=== PATIENT | female | born 1970 ===

== ENCOUNTER 2018-07-26 09:57 | Observation (INO) | payer OTHER ==
[2018-07-26] MEDS ORDERED: Sodium Chloride 0.9% 1,000 ML IV STA (10:31)
--- NOTE | 2018-07-26 10:45 | ED PDOC ---
Syncope/Near Syncope/Dizziness Time Seen by Provider: 07/26/18 10:08 Chief Complaint (Nursing): Abdominal Pain Chief Complaint (Provider): Abdominal Pain History Per: Patient History/Exam Limitations: no limitations Current Symptoms Are (Timing): Still Present Number Of Syncopal Episodes: 2 Activity At Onset Of Symptoms: Sitting Additional Complaint(s): 47 year old female presents to the ED via EMS after 2 syncopal episodes that occurred today while she was going to the bathroom. Patient reports upper abdominal discomfort associated with diarrhea and nausea prior to the incident. She still complains of nausea. Patient mildly improved after EMS placed an IV. Denies vomiting, hematochezia, chest pain, palpitations and focal weakness. PMD: none provided Past Medical History Reviewed: Historical Data, Nursing Documentation, Vital Signs Vital Signs: Last Vital Signs Temp 98.8 F 07/26/18 10:04 Pulse 56 L 07/26/18 10:04 Resp 17 07/26/18 10:04 BP 119/74 07/26/18 10:04 Pulse Ox 100 07/26/18 10:04 - Medical History PMH: Depression - Surgical History Surgical History: No Surg Hx - Family History Family History: States: Unknown Family Hx - Allergies Allergies/Adverse Reactions: Allergies Allergy/AdvReac Type Severity Reaction Status Date / Time No Known Allergies Allergy Unverified 07/26/18 10:08 Review of Systems ROS Statement: Except As Marked, All Systems Reviewed And Found Negative Cardiovascular: Negative for: Chest Pain, Palpitations Gastrointestinal: Positive for: Nausea, Vomiting (x 3; not actively), Abdominal Pain (upper abdominal discomfort ), Diarrhea. Negative for: Hematochezia Physical Exam - Reviewed Nursing Documentation Reviewed: Yes Vital Signs Reviewed: Yes - Physical Exam Appears: Positive for: Non-toxic, No Acute Distress Head Exam: Positive for: ATRAUMATIC, NORMAL INSPECTION, NORMOCEPHALIC Skin: Positive for: Normal Color, Warm, Dry Eye Exam: Positive for: EOMI, Normal appearance, PERRL Neck: Positive for: Normal, Painless ROM, Supple Cardiovascular/Chest: Positive for: Regular Rate, Rhythm. Negative for: Murmur Respiratory: Positive for: Normal Breath Sounds. Negative for: Wheezing, Respiratory Distress Gastrointestinal/Abdominal: Positive for: Normal Exam, Soft. Negative for: Tend erness Back: Positive for: Normal Inspection. Negative for: L CVA Tenderness, R CVA Tenderness Extremity: Positive for: Normal ROM (upper and lower extremities). Negative for: Deformity Neurologic/Psych: Positive for: Alert, twister doffer II-XII (intact), Oriented (x 3), Cerebellar Tests (negative). Negative for: Motor/Sensory Deficits, Facial Droop - ECG O2 Sat by Pulse Oximetry: 100 (RA) Pulse Ox Interpretation: Normal Medical Decision Making Medical Decision Makin:31 Impression: syncopal episode Initial Plan: --Abd & Pelvis CT --Head CT --EKG --CMP --CBC --Troponin I --Urine dip --Urine preg --NS IV 11:[address] FINDINGS: HEMORRHAGE: No intracranial hemorrhage. BRAIN: No mass effect or edema. No atrophy or chronic microvascular ischemic changes. VENTRICLES: Unremarkable. No hydrocephalus. CALVARIUM: Unremarkable. PARANASAL SINUSES: Unremarkable as visualized. No significant inflammatory changes. MASTOID AIR CELLS: Unremarkable as visualized. No inflammatory changes. OTHER FINDINGS: None. IMPRESSION: Normal CT of the Head. No intracranial mass, hemorrhage or evidence of acute infarct. ------ Scribe Attestation: Documented by Alida Masters acting as a scribe for Paolo Arnold MD Provider Scribe Attestation: All medical record entries made by the Scribe were at my direction and personally dictated by me. I have reviewed the chart and agree that the record accurately reflects my personal performance of the history, physical exam, medical decision making, and the department course for this patient. I have also personally directed, reviewed, and agree with the discharge instructions and disposition. Disposition - Clinical Impression Clinical Impression: Syncope - Patient ED Disposition Is Patient to be Admitted: Yes - Disposition Disposition Time: 12:00 Condition: FAIR Forms: Dipl[place] (Citizen Of [place]) - Pt Status Changed To: Hospital Disposition Of: Observation - POA Present On Arrival: None
--- NOTE | 2018-07-26 11:08 | CT ---
Date of service: 07/26/2018 PROCEDURE: CT HEAD WITHOUT CONTRAST. HISTORY: syncope COMPARISON: None available. TECHNIQUE: Axial computed tomography images were obtained through the head/brain without intravenous contrast. Radiation dose: Total exam DLP = 925.99 mGy-cm. This CT exam was performed using one or more of the following dose reduction techniques: Automated exposure control, adjustment of the mA and/or kV according to patient size, and/or use of iterative reconstruction technique. FINDINGS: HEMORRHAGE: No intracranial hemorrhage. BRAIN: No mass effect or edema. No atrophy or chronic microvascular ischemic changes. VENTRICLES: Unremarkable. No hydrocephalus. CALVARIUM: Unremarkable. PARANASAL SINUSES: Unremarkable as visualized. No significant inflammatory changes. MASTOID AIR CELLS: Unremarkable as visualized. No inflammatory changes. OTHER FINDINGS: None. IMPRESSION: Normal CT of the Head. No intracranial mass, hemorrhage or evidence of acute infarct.
--- NOTE | 2018-07-26 11:35 | CARD ---
APPROVED REPORT Date of service: 07/26/2018 EKG Measurement Heart [id number] <Conclusion> Normal sinus rhythm Normal ECG
[2018-07-26 12:44] LABS: BASO % 0.3 % (0.0-2.0); HEMOGLOBIN 15.7 g/dL (12.0-16.0); LYMPH # 1.3 K/uL (1.0-4.3); LYMPH % 8.6 % (20.0-40.0); MEAN CELL VOLUME 86.4 fl (81.0-99.0); MEAN CORPUSCULAR HEMOGLOBIN 27.9 pg (27.0-31.0); MEAN CORPUSCULAR HGB CONC 32.3 g/dL (33.0-37.0); MEAN PLATELET VOLUME 7.5 fl (7.2-11.7); MONO # 0.6 K/uL (0.0-0.8); MONO % 3.8 % (0.0-10.0); NEUT # 13.5 K/uL (1.8-7.0); NEUT % 87.3 % (50.0-75.0); PLATELET COUNT 318 K/uL (130-400); RBC 5.65 Mil/uL (3.80-5.20); RED CELL DISTRIBUTION WIDTH 14.8 % (11.5-14.5); WHITE BLOOD COUNT 15.4 K/uL (4.8-10.8)
[2018-07-26 12:47] LABS: ALB/GLOB RATIO 1.1 (1.0-2.1); ALBUMIN 4.6 g/dL (3.5-5.0); ALT/SGPT 26 U/L (9-52); AST/SGOT 22 U/L (14-36); BLOOD UREA NITROGEN 14 mg/dl (7-17); CALCIUM 8.9 mg/dL (8.4-10.2); GFR NON-AFRICAN AMERICAN > 60
[2018-07-26] MEDS ORDERED: Sodium Chloride 0.9% 50 ML IV ONE (12:54)
[2018-07-26] MEDS ORDERED: Iohexol 300 100 ML IJ ONE (12:54)
--- NOTE | 2018-07-26 13:18 | CP.PCM.HP ---
<Lisa Last - Last Filed: 07/26/18 14:58> History of Present Illness - History of Present Illness History of Present Illness: CC: Syncope, abdominal pain 47 yo female patient, with PMHx of psoriatic arthritis, herniated disks, and depression, seen and examined at bedside for two episodes of syncope while going to the bathroom this morning. She states that she woke up this morning with abdominal discomfort, prompting her to use the restroom. During both episodes she sat down on the toilet she woke up on the bathroom floor. She admits to hitting her head on the bathroom pipes during episode. Denies V/F/SOB/CP/chills, denies dizziness, denies headache, reports abdominal discomfort and nausea. PMHx: Psoriatic arthritis, herniated disks, and depression PSHx: Appendectomy (1977), Tonsilectomy (1979), (1998), Cholecystectomy (2012) SHx: Denies tobacco use, denies illicit drug use, social alcohol use ALL: NKDA Present on Admission - Present on Admission Any Indicators Present on Admission: No History of DVT/PE: No History of Uncontrolled Diabetes: No Urinary Catheter: No Decubitus Ulcer Present: No Review of Systems - Constitutional Constitutional: As Per HPI. absent: Chills, Fever, Headache - EENT Eyes: absent: Blurred Vision, Change in Vision, Loss of Vision Ears: absent: Decreased Hearing Nose/Mouth/Throat: absent: Sinus Pressure, Throat Swelling, Neck Pain - Cardiovascular Cardiovascular: Syncope. absent: Chest Pain, Dyspnea, Palpitations - Respiratory Respiratory: absent: Cough, Dyspnea, Wheezing - Gastrointestinal Gastrointestinal: Nausea. absent: Bloating, Vomiting - Genitourinary Genitourinary: absent: Change in Urinary Stream, Urinary Urgency - Musculoskeletal Musculoskeletal: Arthralgias - Integumentary Integumentary: Rash Additional comments: Psoriatic lesions located on b/l arms and lower extremities - Neurological Neurological: Syncope. absent: Dizziness, Headaches, Loss of Vision - Hematologic/Lymphatic Hematologic: absent: Easy Bleeding, Easy Bruising Past Patient History - Past Medical History & Family History Past Medical History?: Yes - Past Social History Smoking Status: Never Smoked Drugs: Denies Home Situation {Lives}: With Family - MUSCULOSKELETAL/RHEUMATOLOGICAL Hx Musculoskeletal Disorders: Yes Hx Herniated Disk: Yes - PSYCHIATRIC Hx Depression: Yes - SURGICAL HISTORY Hx Surgeries: No - ANESTHESIA Hx Anesthesia: No Meds Allergies/Adverse Reactions: Allergies Allergy/AdvReac Type Severity Reaction Status Date / Time No Known Allergies Allergy Unverified 07/26/18 10:08 Physical Exam - Constitutional Appears: Non-toxic, No Acute Distress - Head Exam Additional comments: Contusion noted to L forehead above eyebrow with ecchymosis - Eye Exam Eye Exam: EOMI, PERRL Pupil Exam: NORMAL ACCOMODATION - ENT Exam ENT Exam: Mucous Membranes Moist - Neck Exam Neck exam: Positive for: Normal Inspection - Respiratory Exam Respiratory Exam: Clear to Auscultation Bilateral - Cardiovascular Exam Cardiovascular Exam: REGULAR RHYTHM - GI/Abdominal Exam GI & Abdominal Exam: Normal Bowel Sounds, Soft - Extremities Exam Extremities exam: Positive for: normal inspection. Negative for: pedal edema - Neurological Exam Neurological exam: Alert, Oriented x3 - Psychiatric Exam Psychiatric exam: Normal Affect, Normal Mood - Skin Skin Exam: Warm Results - Vital Signs Recent Vital Signs: Last Vital Signs Temp 98.8 F 07/26/18 10:04 Pulse 56 L 07/26/18 10:04 Resp 17 07/26/18 10:04 BP 119/74 07/26/18 10:04 Pulse Ox 100 07/26/18 12:00 - Labs Result Diagrams: 07/26/18 11:32 07/26/18 10:34 Labs: Laboratory Results - last 24 hr 07/26/18 07/26/18 07/26/18 10:32 10:34 11:32 WBC 15.4 H RBC 5.65 H Hgb 15.7 Hct 48.8 H MCV 86.4 MCH 27.9 MCHC 32.3 L RDW 14.8 H Plt Count 318 MPV 7.5 Neut % (Auto) 87.3 H Lymph % (Auto) 8.6 L [place] % (Auto) 3.8 Eos % (Auto) 0.0 Baso % (Auto) 0.3 Neut # (Auto) 13.5 H Lymph # (Auto) 1.3 [place] # (Auto) 0.6 Eos # (Auto) 0.0 Baso # (Auto) 0.0 Sodium 141 Potassium 4.0 Chloride 108 H Carbon Dioxide 22 Anion Gap 15 BUN 14 Creatinine 0.5 L Est GFR ( Amer) > 60 Est GFR (Non-Af Amer) > 60 POC Glucose (mg/dL) 93 Random Glucose 97 Calcium 8.9 Total Bilirubin 0.6 AST 22 ALT 26 Alkaline Phosphatase 76 Troponin I < 0.0120 Total Protein 8.6 H Albumin 4.6 Globulin 4.0 H Albumin/Globulin Ratio 1.1 Assessment & Plan - Assessment and Plan (Free Text) Assessment: 47 yo female patient, with PMHx of psoriatic arthritis, herniated disks, and depression, admitted for multiple episodes of syncope of unknown etiology Plan: 1) Syncopal episode - Ekg: Normal sinus rhythm - Head CT w/o contrast: Normal CT of the head. No intracranial mass, hemorrhage, or evidence of acute infarct. - CMP WNL, first troponin neg, trend Q 6hrs\ - orthostatic blood pressure - Urine drug screen pending - Continous tele monitoring - Ambulation with full precautions - Regular diet - IV fluid maintenance hydration 2) Abdominal discomfort - Leukocytosis 15.4 on presentation, afebrile, no signs or symptoms of infection - F/U next day CBC - Zofran PRN - Abdomen/Pelvis CT: No acute abnormality, diverticulosis of transverse colon and hepatic flexure without evidence of diverticulitis - UA pending 2) DVT prophylaxis - Lovenox 40 mg SC daily 3) Code status - Full code - Date & Time Date: 07/26/18 Time: 13:31 <Demond Raza - Last Filed: 07/26/18 15:04> Results - Vital Signs Recent Vital Signs: Last Vital Signs Temp 98.8 F 07/26/18 10:04 Pulse 56 L 07/26/18 10:04 Resp 17 07/26/18 10:04 BP 119/74 07/26/18 10:04 Pulse Ox 100 07/26/18 12:00 - Labs Result Diagrams: 07/26/18 11:32 07/26/18 10:34 Labs: Laboratory Results - last 24 hr 07/26/18 07/26/18 07/26/18 10:32 10:34 11:32 WBC 15.4 H RBC 5.65 H Hgb 15.7 Hct 48.8 H MCV 86.4 MCH 27.9 MCHC 32.3 L RDW 14.8 H Plt Count 318 MPV 7.5 Neut % (Auto) 87.3 H Lymph % (Auto) 8.6 L [place] % (Auto) 3.8 Eos % (Auto) 0.0 Baso % (Auto) 0.3 Neut # (Auto) 13.5 H Lymph # (Auto) 1.3 [place] # (Auto) 0.6 Eos # (Auto) 0.0 Baso # (Auto) 0.0 Neutrophils % (Manual) 86 H Lymphocytes % (Manual) 10 L Monocytes % (Manual) 4 Platelet Estimate Normal Anisocytosis (manual) Slight Sodium 141 Potassium 4.0 Chloride 108 H Carbon Dioxide 22 Anion Gap 15 BUN 14 Creatinine 0.5 L Est GFR ( Amer) > 60 Est GFR (Non-Af Amer) > 60 POC Glucose (mg/dL) 93 Random Glucose 97 Calcium 8.9 Total Bilirubin 0.6 AST 22 ALT 26 Alkaline Phosphatase 76 Troponin I < 0.0120 Total Protein 8.6 H Albumin 4.6 Globulin 4.0 H Albumin/Globulin Ratio 1.1 Attending/Attestation - Attestation I have personally seen and examined this patient.: Yes I have fully participated in the care of the patient.: Yes I have reviewed all pertinent clinical information: Yes Notes (Text): 07/26/18 15:03 Patient seen and examined with resident. Case discussed and agreed with assessment and plan of management.
[2018-07-26 13:44] LABS: LYMPHOCYTE 10 % (20-50); MONOCYTE 4 % (0-10); NEUTROPHIL 86 % (42-75); TOTAL CELLS COUNTED 100
[2018-07-26 13:45] LABS: ANISOCYTOSIS SLIGHT; PLATELET ESTIMATE NORMAL (NORMAL)
--- NOTE | 2018-07-26 14:01 | CT ---
Date of service: 07/26/2018 PROCEDURE: CT Abdomen and Pelvis with contrast HISTORY: Abd pain COMPARISON: None. TECHNIQUE: Contrast dose: 95 cc Omnipaque 300 Radiation dose: Total exam DLP = 930.36 mGy-cm. This CT exam was performed using one or more of the following dose reduction techniques: Automated exposure control, adjustment of the mA and/or kV according to patient size, and/or use of iterative reconstruction technique. FINDINGS: LOWER THORAX: Unremarkable. LIVER: Unremarkable. No gross lesion or ductal dilatation. GALLBLADDER AND BILE DUCTS: Unremarkable. PANCREAS: Unremarkable. No gross lesion or ductal dilatation. SPLEEN: Unremarkable. ADRENALS: Unremarkable. No mass. KIDNEYS AND URETERS: Unremarkable. No hydronephrosis. No solid mass. VASCULATURE: Unremarkable. No aortic aneurysm. No aortic atherosclerotic calcification or mural plaque present. BOWEL: Diverticulosis of the hepatic flexure and transverse colon. No evidence of diverticulitis. No bowel obstruction. No other abnormal bowel loops APPENDIX: . not identified. No secondary findings to suggest acute appendicitis. PERITONEUM: Unremarkable. No free fluid. No free air. LYMPH NODES: Unremarkable. No enlarged lymph nodes. BLADDER: Unremarkable. REPRODUCTIVE: Normal uterus BONES: No acute fracture. OTHER FINDINGS: None. IMPRESSION: No acute abnormality. Diverticulosis of the transverse colon and hepatic flexure without evidence of diverticulitis.
[2018-07-26 16:05] LABS: BARBITURATES, UR NEGATIVE (NEGATIVE); BENZODIAZEPINES, UR NEGATIVE (NEGATIVE); OPIATES, UR NEGATIVE (NEGATIVE); PHENCYCLIDINE, UR NEGATIVE (NEGATIVE)
[2018-07-26 16:11] LABS: SQUAMOUS EPITHIAL 1 /hpf (0-5); URINE BILIRUBIN NEGATIVE (NEGATIVE); URINE BLOOD LARGE (NEGATIVE); URINE CLARITY CLEAR (Clear); URINE COLOR YELLOW (YELLOW); URINE GLUCOSE (UA) NEG (Normal); URINE LEUKOCYTE ESTERASE NEG Leu/uL (Negative); URINE PROTEIN NEGATIVE (NEGATIVE); URINE UROBILINOGEN 0.2-1.0 mg/dL (0.2-1.0)
[2018-07-27 06:27] LABS: HEMOGLOBIN 14.1 g/dL (12.0-16.0); MEAN CELL VOLUME 84.7 fl (81.0-99.0); MEAN CORPUSCULAR HEMOGLOBIN 27.9 pg (27.0-31.0); MEAN CORPUSCULAR HGB CONC 32.9 g/dL (33.0-37.0); RBC 5.07 Mil/uL (3.80-5.20); RED CELL DISTRIBUTION WIDTH 14.5 % (11.5-14.5); WHITE BLOOD COUNT 10.7 K/uL (4.8-10.8)
[2018-07-27 06:58] LABS: BLOOD UREA NITROGEN 13 mg/dl (7-17); CALCIUM 8.8 mg/dL (8.4-10.2); GFR NON-AFRICAN AMERICAN > 60
[2018-07-27 07:43] VITALS: O2SAT 98
[2018-07-27] MEDS ORDERED: Enoxaparin 40 mg Syringe SC SCH (09:00)
--- NOTE | 2018-07-27 09:52 | CP.PCM.PN ---
Subjective - Date & Time of Evaluation Date of Evaluation: 07/27/18 Time of Evaluation: 09:52 Objective - Vital Signs/Intake and Output Vital Signs (last 24 hours): Temp Pulse Resp BP Pulse Ox 97 F L 98 H 19 128/78 98 07/27/18 09:15 07/27/18 09:15 07/27/18 09:15 07/27/18 09:15 07/27/18 09:15 - Medications Medications: Current Medications Enoxaparin Sodium (Lovenox) 40 mg SC DAILY PRANAV; Protocol Last Admin: 07/27/18 08:41 Dose: 40 mg Ondansetron HCl (Zofran Inj) 4 mg IVP Q6 PRN PRN Reason: Nausea/Vomiting - Labs Labs: 07/27/18 06:00 07/27/18 06:00
[2018-07-27 09:55] VITALS: BP 130/82; RESP 18; TEMP 98.4
[2018-07-27 10:01] VITALS: PULSE 70
--- NOTE | 2018-07-27 11:35 | CP.PCM.DIS ---
<Lisa Last - Last Filed: 07/27/18 12:07> Provider - Provider Date of Admission: 07/26/18 11:59 Attending physician: Demond Raza MD Time Spent in preparation of Discharge (in minutes): 30 Hospital Course - Lab Results Lab Results: Most Recent Lab Values WBC 10.7 K/uL (4.8-10.8) 07/27/18 06:00 RBC 5.07 Mil/uL (3.80-5.20) 07/27/18 06:00 Hgb 14.1 g/dL (12.0-16.0) 07/27/18 06:00 Hct 43.0 % (34.0-47.0) 07/27/18 06:00 MCV 84.7 fl (81.0-99.0) 07/27/18 06:00 MCH 27.9 pg (27.0-31.0) 07/27/18 06:00 MCHC 32.9 g/dL (33.0-37.0) L 07/27/18 06:00 RDW 14.5 % (11.5-14.5) 07/27/18 06:00 Plt Count 295 K/uL (130-400) 07/27/18 06:00 MPV 7.5 fl (7.2-11.7) 07/26/18 11:32 Neut % (Auto) 87.3 % (50.0-75.0) H 07/26/18 11:32 Lymph % (Auto) 8.6 % (20.0-40.0) L 07/26/18 11:32 [place] % (Auto) 3.8 % (0.0-10.0) 07/26/18 11:32 Eos % (Auto) 0.0 % (0.0-4.0) 07/26/18 11:32 Baso % (Auto) 0.3 % (0.0-2.0) 07/26/18 11:32 Neut # (Auto) 13.5 K/uL (1.8-7.0) H 07/26/18 11:32 Lymph # (Auto) 1.3 K/uL (1.0-4.3) 07/26/18 11:32 [place] # (Auto) 0.6 K/uL (0.0-0.8) 07/26/18 11:32 Eos # (Auto) 0.0 K/uL (0.0-0.7) 07/26/18 11:32 Baso # (Auto) 0.0 K/uL (0.0-0.2) 07/26/18 11:32 Neutrophils % (Manual) 86 % (42-75) H 07/26/18 11:32 Lymphocytes % (Manual) 10 % (20-50) L 07/26/18 11:32 Monocytes % (Manual) 4 % (0-10) 07/26/18 11:32 Platelet Estimate Normal (NORMAL) 07/26/18 11:32 Anisocytosis (manual) Slight 07/26/18 11:32 Sodium 141 mmol/l (132-148) 07/27/18 06:00 Potassium 3.7 MMOL/L (3.6-5.0) 07/27/18 06:00 Chloride 109 mmol/L (98-107) H 07/27/18 06:00 Carbon Dioxide 23 mmol/L (22-30) 07/27/18 06:00 Anion Gap 13 (10-20) 07/27/18 06:00 BUN 13 mg/dl (7-17) 07/27/18 06:00 Creatinine 0.5 mg/dl (0.7-1.2) L 07/27/18 06:00 Est GFR ( Amer) > 60 07/27/18 06:00 Est GFR (Non-Af Amer) > 60 07/27/18 06:00 POC Glucose (mg/dL) 93 mg/dL (65-110) 07/26/18 10:32 Random Glucose 101 mg/dL (65-105) 07/27/18 06:00 Calcium 8.8 mg/dL (8.4-10.2) 07/27/18 06:00 Total Bilirubin 0.6 mg/dl (0.2-1.3) 07/26/18 10:34 AST 22 U/L (14-36) 07/26/18 10:34 ALT 26 U/L (9-52) 07/26/18 10:34 Alkaline Phosphatase 76 U/L (38-126) 07/26/18 10:34 Troponin I < 0.0120 ng/mL (0.00-0.120) 07/27/18 00:00 Total Protein 8.6 G/DL (6.3-8.2) H 07/26/18 10:34 Albumin 4.6 g/dL (3.5-5.0) 07/26/18 10:34 Globulin 4.0 gm/dL (2.2-3.9) H 07/26/18 10:34 Albumin/Globulin Ratio 1.1 (1.0-2.1) 07/26/18 10:34 Urine Color Yellow (YELLOW) 07/26/18 15:25 Urine Clarity Clear (Clear) 07/26/18 15:25 Urine pH 5.0 (5.0-8.0) 07/26/18 15:25 Ur Specific [place] 1.010 (1.003-1.030) 07/26/18 15:25 Urine Protein Negative mg/dL (NEGATIVE) 07/26/18 15:25 Urine Glucose (UA) Neg mg/dL (Normal) 07/26/18 15:25 Urine Ketones 20 mg/dL (NEGATIVE) 07/26/18 15:25 Urine Blood Large (NEGATIVE) 07/26/18 15:25 Urine Nitrate Negative (NEGATIVE) 07/26/18 15:25 Urine Bilirubin Negative (NEGATIVE) 07/26/18 15:25 Urine Urobilinogen 0.2-1.0 mg/dL (0.2-1.0) 07/26/18 15:25 Ur Leukocyte Esterase Neg Kavitha/uL (Negative) 07/26/18 15:25 Urine RBC (Auto) 15 /hpf (0-3) H 07/26/18 15:25 Urine Microscopic WBC 1 /hpf (0-5) 07/26/18 15:25 Ur Squamous Epith Cells 1 /hpf (0-5) 07/26/18 15:25 Urine Opiates Screen Negative (NEGATIVE) 07/26/18 15:25 Urine Methadone Screen Negative (NEGATIVE) 07/26/18 15:25 Ur Barbiturates Screen Negative (NEGATIVE) 07/26/18 15:25 Ur Phencyclidine Scrn Negative (NEGATIVE) 07/26/18 15:25 Ur Amphetamines Screen Negative (NEGATIVE) 07/26/18 15:25 U Benzodiazepines Scrn Negative (NEGATIVE) 07/26/18 15:25 U Oth Cocaine Metabols Negative (NEGATIVE) 07/26/18 15:25 U Cannabinoids Screen Negative (NEGATIVE) 07/26/18 15:25 - Hospital Course Hospital Course: 47 yo female patient, with PMHx of psoriatic arthritis, herniated disks, and depression, admitted for two episodes of syncope of unknown etiology. 1) Syncopal episode - Ekg: Normal sinus rhythm - Head CT w/o contrast: Normal CT of the head. No intracranial mass, hemorrhage, or evidence of acute infarct. - CMP WNL, troponin neg - Orthostatic blood pressure - Urine drug screen negative - Ambulation with full precautions - Regular diet - IV fluid maintenance hydration 2) Abdominal discomfort - Leukocytosis resolved afebrile, no signs or symptoms of infection - Abdomen/Pelvis CT: No acute abnormality, diverticulosis of transverse colon and hepatic flexure without evidence of diverticulitis - UA negative Patient was found to have syncope on presentation. During her hospital course, patient was started on fluids, leukocytosis and abdominal discomfort resolved. Patient hemodynamically stable, and denies N/V/F/SOB/chills, denies chest pain, denies headache, and denies abdominal pain. Chart reviewed, patient stable to be discharged home. - Date & Time of H&P Date of H&P: 07/27/18 Time of H&P: 11:35 Discharge Exam - Eye Exam Eye Exam: EOMI, Normal appearance Pupil Exam: NORMAL ACCOMODATION - ENT Exam ENT Exam: Normal Exam - Neck Exam Neck exam: Normal Inspection - Respiratory Exam Respiratory Exam: NORMAL BREATHING PATTERN, UNREMARKABLE - Cardiovascular Exam Cardiovascular Exam: REGULAR RHYTHM - GI/Abdominal Exam GI & Abdominal Exam: Normal Bowel Sounds, Unremarkable - Extremities Exam Extremities exam: normal capillary refill, normal inspection - Back Exam Back exam: NORMAL INSPECTION - Neurological Exam Neurological exam: Alert, Oriented x3 - Psychiatric Exam Psychiatric exam: Normal Affect, Normal Mood - Skin Skin Exam: Intact, Normal Color Discharge Plan - Follow Up Plan Condition: FAIR Disposition: HOME/ ROUTINE Instructions: Syncope (DC) Additional Instructions: follow up appt with pmd in 1 week Referrals: [facility] [Outside] <Demond Raza - Last Filed: 07/27/18 13:59> Provider - Provider Date of Admission: 07/26/18 11:59 Attending physician: Demond Raza MD Hospital Course - Lab Results Lab Results: Most Recent Lab Values WBC 10.7 K/uL (4.8-10.8) 07/27/18 06:00 RBC 5.07 Mil/uL (3.80-5.20) 07/27/18 06:00 Hgb 14.1 g/dL (12.0-16.0) 07/27/18 06:00 Hct 43.0 % (34.0-47.0) 07/27/18 06:00 MCV 84.7 fl (81.0-99.0) 07/27/18 06:00 MCH 27.9 pg (27.0-31.0) 07/27/18 06:00 MCHC 32.9 g/dL (33.0-37.0) L 07/27/18 06:00 RDW 14.5 % (11.5-14.5) 07/27/18 06:00 Plt Count 295 K/uL (130-400) 07/27/18 06:00 MPV 7.5 fl (7.2-11.7) 07/26/18 11:32 Neut % (Auto) 87.3 % (50.0-75.0) H 07/26/18 11:32 Lymph % (Auto) 8.6 % (20.0-40.0) L 07/26/18 11:32 [place] % (Auto) 3.8 % (0.0-10.0) 07/26/18 11:32 Eos % (Auto) 0.0 % (0.0-4.0) 07/26/18 11:32 Baso % (Auto) 0.3 % (0.0-2.0) 07/26/18 11:32 Neut # (Auto) 13.5 K/uL (1.8-7.0) H 07/26/18 11:32 Lymph # (Auto) 1.3 K/uL (1.0-4.3) 07/26/18 11:32 [place] # (Auto) 0.6 K/uL (0.0-0.8) 07/26/18 11:32 Eos # (Auto) 0.0 K/uL (0.0-0.7) 07/26/18 11:32 Baso # (Auto) 0.0 K/uL (0.0-0.2) 07/26/18 11:32 Neutrophils % (Manual) 86 % (42-75) H 07/26/18 11:32 Lymphocytes % (Manual) 10 % (20-50) L 07/26/18 11:32 Monocytes % (Manual) 4 % (0-10) 07/26/18 11:32 Platelet Estimate Normal (NORMAL) 07/26/18 11:32 Anisocytosis (manual) Slight 07/26/18 11:32 Sodium 141 mmol/l (132-148) 07/27/18 06:00 Potassium 3.7 MMOL/L (3.6-5.0) 07/27/18 06:00 Chloride 109 mmol/L (98-107) H 07/27/18 06:00 Carbon Dioxide 23 mmol/L (22-30) 07/27/18 06:00 Anion Gap 13 (10-20) 07/27/18 06:00 BUN 13 mg/dl (7-17) 07/27/18 06:00 Creatinine 0.5 mg/dl (0.7-1.2) L 07/27/18 06:00 Est GFR ( Amer) > 60 07/27/18 06:00 Est GFR (Non-Af Amer) > 60 07/27/18 06:00 POC Glucose (mg/dL) 93 mg/dL (65-110) 07/26/18 10:32 Random Glucose 101 mg/dL (65-105) 07/27/18 06:00 Calcium 8.8 mg/dL (8.4-10.2) 07/27/18 06:00 Total Bilirubin 0.6 mg/dl (0.2-1.3) 07/26/18 10:34 AST 22 U/L (14-36) 07/26/18 10:34 ALT 26 U/L (9-52) 07/26/18 10:34 Alkaline Phosphatase 76 U/L (38-126) 07/26/18 10:34 Troponin I < 0.0120 ng/mL (0.00-0.120) 07/27/18 00:00 Total Protein 8.6 G/DL (6.3-8.2) H 07/26/18 10:34 Albumin 4.6 g/dL (3.5-5.0) 07/26/18 10:34 Globulin 4.0 gm/dL (2.2-3.9) H 07/26/18 10:34 Albumin/Globulin Ratio 1.1 (1.0-2.1) 07/26/18 10:34 Urine Color Yellow (YELLOW) 07/26/18 15:25 Urine Clarity Clear (Clear) 07/26/18 15:25 Urine pH 5.0 (5.0-8.0) 07/26/18 15:25 Ur Specific [place] 1.010 (1.003-1.030) 07/26/18 15:25 Urine Protein Negative mg/dL (NEGATIVE) 07/26/18 15:25 Urine Glucose (UA) Neg mg/dL (Normal) 07/26/18 15:25 Urine Ketones 20 mg/dL (NEGATIVE) 07/26/18 15:25 Urine Blood Large (NEGATIVE) 07/26/18 15:25 Urine Nitrate Negative (NEGATIVE) 07/26/18 15:25 Urine Bilirubin Negative (NEGATIVE) 07/26/18 15:25 Urine Urobilinogen 0.2-1.0 mg/dL (0.2-1.0) 07/26/18 15:25 Ur Leukocyte Esterase Neg Kavitha/uL (Negative) 07/26/18 15:25 Urine RBC (Auto) 15 /hpf (0-3) H 07/26/18 15:25 Urine Microscopic WBC 1 /hpf (0-5) 07/26/18 15:25 Ur Squamous Epith Cells 1 /hpf (0-5) 07/26/18 15:25 Urine Opiates Screen Negative (NEGATIVE) 07/26/18 15:25 Urine Methadone Screen Negative (NEGATIVE) 07/26/18 15:25 Ur Barbiturates Screen Negative (NEGATIVE) 07/26/18 15:25 Ur Phencyclidine Scrn Negative (NEGATIVE) 07/26/18 15:25 Ur Amphetamines Screen Negative (NEGATIVE) 07/26/18 15:25 U Benzodiazepines Scrn Negative (NEGATIVE) 07/26/18 15:25 U Oth Cocaine Metabols Negative (NEGATIVE) 07/26/18 15:25 U Cannabinoids Screen Negative (NEGATIVE) 07/26/18 15:25 Attending/Attestation - Attestation I have personally seen and examined this patient.: Yes I have fully participated in the care of the patient.: Yes I have reviewed all pertinent clinical information, including history, physical exam and plan: Yes Notes (Text): 07/27/18 13:58 Patient seen and examined with resident. Case discussed and agreed with assessment and plan of management.
== END 2018-07-27 14:47 | disposition home or self-care (01) ==
LOC: H.ER 09:57 → H.ERHOLD 11:59 → H.TEL 07-27 09:09
DX: R55 Syncope and collapse (principal); D72.829 Elevated white blood cell count, unspecified; L40.50 Arthropathic psoriasis, unspecified; Z90.49 Acquired absence of other specified parts of digestive tract; F32.9 Major depressive disorder, single episode, unspecified
CPT/HCPCS: 70450; 74177; 80048; 80053; 80324; 80345; 80346; 80349; 80353; 80358; 80361; 81003; 81025; 82948; 83992; 84484; 85025; 85027; 93005; 96372; 99285; G0378; J1650; J7030; Q9967